=== PATIENT | female | born 1980 | race Caucasian/White ===

== ENCOUNTER 2020-02-05 08:14 | Outpatient (CLI) | payer BC, OTHER ==
[~2020-02-05] VITALS: Ht 162 cm; Wt 190.0 kg
[2020-02-05 08:05] VITALS: BP 164/87
[~2020-02-05 08:14] MED LIST: NITR-65 PO; ONDA-42 SL; PHEN200T27 PO; TRAM-21 PO; birth control PO
[2020-02-05] MEDS ORDERED: EPINEPHrine INJECTION 1 MG/ML AMP IM PRN (08:30)
[2020-02-05] MEDS ORDERED: BAMLANIVIMAB 700 MG in NS 200 ML IV ONE (08:30)
[2020-02-05] MEDS ORDERED: diphenhydrAMINE 50 MG/ML INJ (BENADRYL) IV PRN (08:30)
[2020-02-05 09:55] VITALS: BP 126/67
== END 2020-02-05 11:00 ==
LOC: INFUSION 08:14
PROVIDERS: ATTEND Nurse Practitioner Family
DX: U07.1 COVID-19 (principal)